=== PATIENT | male | born 1980 | race Caucasian/White ===

== ENCOUNTER 2024-11-14 06:10 | Emergency (ER) | payer BC, SELFPAY ==
[2024-11-14 06:11] VITALS: BP 152/87; PULSE 83; RESP 16; TEMP 36.8; O2SAT 95; BMI 33.4
--- NOTE | 2024-11-14 06:23 | XRR_ITS ---
PROCEDURE INFORMATION: Exam: XR Right Ankle Exam date and time: 11/14/2024 6:29 AM Age: 44 years old Clinical indication: Right; C/O persistent RT ankle and foot pain after accidentally stepping through a wooden pallet four days ago. ; Additional info: Trauma TECHNIQUE: Imaging protocol: Radiologic exam of the right ankle. Views: 3 or more views. COMPARISON: CR XR foot RT min 3V* [id number] 11/14/2024 6:29 AM FINDINGS: Bones/joints: Normal. Soft tissues: Normal. PROCEDURE INFORMATION: Exam: XR Right Foot Exam date and time: 11/14/2024 6:29 AM Age: 44 years old Clinical indication: Right; C/O persistent RT ankle and foot pain after accidentally stepping through a wooden pallet four days ago. ; Additional info: Trauma TECHNIQUE: Imaging protocol: Radiologic exam of the right foot. Views: 3 or more views. COMPARISON: CR (LOW EXM, ) 11/14/2024 6:29 AM FINDINGS: Bones/joints: No fracture or dislocation. Mild degenerative change of the plantar aspect of the cuboid calcaneal joint and talonavicular joint. Plantar calcaneal enthesophyte. Achilles calcaneal enthesophyte. Lateral bipartite sesamoid with degenerative change. Mild 1st metatarsophalangeal joint osteoarthritis. Soft tissues: Moderate soft tissue swelling about the ankle and dorsal midfoot. Other findings: Decreased mineralization. XR/XR foot RT min 3V* [id number] IMPRESSION: No acute findings. IMPRESSION: Moderate soft tissue swelling about the ankle and dorsal midfoot without evidence of acute osseous abnormality. Consider MRI for further evaluation if clinical concern persists.
--- NOTE | 2024-11-14 06:23 | XRR_ITS ---
PROCEDURE INFORMATION: Exam: XR Right Ankle Exam date and time: 11/14/2024 6:29 AM Age: 44 years old Clinical indication: Right; C/O persistent RT ankle and foot pain after accidentally stepping through a wooden pallet four days ago. ; Additional info: Trauma TECHNIQUE: Imaging protocol: Radiologic exam of the right ankle. Views: 3 or more views. COMPARISON: CR XR foot RT min 3V* [id number] 11/14/2024 6:29 AM FINDINGS: Bones/joints: Normal. Soft tissues: Normal. PROCEDURE INFORMATION: Exam: XR Right Foot Exam date and time: 11/14/2024 6:29 AM Age: 44 years old Clinical indication: Right; C/O persistent RT ankle and foot pain after accidentally stepping through a wooden pallet four days ago. ; Additional info: Trauma TECHNIQUE: Imaging protocol: Radiologic exam of the right foot. Views: 3 or more views. COMPARISON: CR (LOW EXM, ) 11/14/2024 6:29 AM FINDINGS: Bones/joints: No fracture or dislocation. Mild degenerative change of the plantar aspect of the cuboid calcaneal joint and talonavicular joint. Plantar calcaneal enthesophyte. Achilles calcaneal enthesophyte. Lateral bipartite sesamoid with degenerative change. Mild 1st metatarsophalangeal joint osteoarthritis. Soft tissues: Moderate soft tissue swelling about the ankle and dorsal midfoot. Other findings: Decreased mineralization. XR/XR ankle RT min 3V* [id number] IMPRESSION: No acute findings. IMPRESSION: Moderate soft tissue swelling about the ankle and dorsal midfoot without evidence of acute osseous abnormality. Consider MRI for further evaluation if clinical concern persists.
--- NOTE | 2024-11-14 06:35 | ED_ITS ---
HPI - Extremity Problem General: Chief complaint: Extremity Injury, Lower Stated complaint: rt foot inj Time Seen by Provider: 11/14/24 06:21 History of Present Illness: 44-year-old male presents emergency room complaining of right foot pain. 3 to 4 days ago the patient stepped through a pallet and injured his right foot and ankle. He has been able to bear weight since then. He is complaining of swelling of the foot. Related Data Previous Rx's Medication Instructions Recorded diclofenac sodium 75 mg 75 mg PO Q12H PRN pain #20 tabs 11/14/24 tablet,delayed release Allergies Allergy/AdvReac Type Severity Reaction Status Date / Time No Known Allergies Allergy Verified 11/14/24 06:19 Review of Systems Musc: Reports: extremity swelling and joint swelling Physical Exam Const: COMMON NORMALS: no acute distress GENERAL APPEARANCE: cooperative and comfortable ORIENTATION/CONSCIOUSNESS: Yes awake, Yes oriented to person, Yes oriented to place and Yes oriented to time HENMT: COMMON NORMALS: normocephalic, atraumatic and hearing grossly normal bilaterally HEAD & SCALP: normocephalic and atraumatic Resp: COMMON NORMALS: normal respiratory effort and No retractions Extremity: OTHER: No acute fracture on the foot or ankle. No ecchymosis no laceration no obvious deformity Neuro: SENSORIUM/ORIENTATION: Yes oriented to person, Yes oriented to place and Yes oriented to time Skin: COMMON NORMALS: no rashes or lesions noted GENERAL SKIN EXAM: no rashes or lesions noted Course Vital Signs: Vital signs: Vital Signs Temperature 98.2 F 11/14/24 06:11 Pulse Rate 83 11/14/24 06:11 Respiratory Rate 16 11/14/24 06:11 Blood Pressure 152/87 11/14/24 06:11 Pulse Oximetry 95 11/14/24 06:11 Oxygen Delivery Me thod Room Air 11/14/24 06:11 MDM - Extremity (Nontraumatic) Medical Decision Making Discharge home elevate. Make him nonweightbearing. Unfortunately he is traveling to the area and has difficulty getting follow-up he will not be staying in this area he is heading to [place]. Recommend that he rest nonweightbearing left neck several days if he is unable to begin to bear weight he can follow-up either in [place] or try to establish with an orthopedist wherever he is out. Lab Data Radiology Impressions Ankle X-Ray 11/14/24 06:23 IMPRESSION: No acute findings. IMPRESSION: Moderate soft tissue swelling about the ankle and dorsal midfoot without evidence of acute osseous abnormality. Consider MRI for further evaluation if clinical concern persists. Foot X-Ray 11/14/24 06:23 IMPRESSION: No acute findings. IMPRESSION: Moderate soft tissue swelling about the ankle and dorsal midfoot without evidence of acute osseous abnormality. Consider MRI for further evaluation if clinical concern persists. All radiology interpretation(s) finalized by discharge Discharge Plan Discharge Patient Disposition: Home Clinical Impression: Right foot sprain Condition: Stable Prescriptions: New diclofenac sodium 75 mg tablet,delayed release (DR/EC) 75 mg PO Q12H PRN (Reason: pain) Qty: 20 0RF Discharge Orders: Discharge ED (Routine); Ordered 11/14/24 Ordered By: Boone Hyman Discharge Diet: Usual diet Discharge Activity: Limit activity as instructed Patient Instructions: Opioid Safety, Pain Management Activity Restrictions/Additional Instructions: Thank you for choosing [facility] for your healthcare needs today. It is very important that you follow up as instructed or that you return to the Emergency Department should you have concerns or if your condition changes or worsens in any way. You were seen in the emergency room with complaint of right foot and ankle pain. The x-rays did not show any acute fracture. On exam you are noted to have moderate amount of swelling. He reported he had difficulty with full weightbearing. Recommend a posterior lower leg splint and nonweightbearing. Recommend following up with your primary care doctor as soon as you are able once you return home. Coding Level of Care Code ED Assistant Track Coach for [employer]
[2024-11-14] MEDS: ketorolac 30 mg/mL INJ 60 MG IM (07:14)
[2024-11-14 07:32] VITALS: BP 140/91; PULSE 74; O2SAT 99
== END 2024-11-14 07:35 | disposition home or self-care (01) ==
PROVIDERS: Emergency Provider Family Medicine
DX: S93.601A Unspecified sprain of right foot, initial encounter (principal); X58.XXXA Exposure to other specified factors, initial encounter
CPT/HCPCS: 29515; 73610; 73630; 96372; 99284; E0114; J1885